=== PATIENT | male | born 1950 | race Caucasian/White ===

== ENCOUNTER → 2020-03-11 | Outpatient (CLI) | payer MEDICARE, BC, SELFPAY ==
[2013-06-18 16:11] VITALS: BMI 29.7
--- NOTE | 2020-03-11 | LES_PTH ---
PATIENT: JENNIFER BENDER LOC: [facility] U#:[id number] AGE/SX: 69/M ROOM: RE03/11/[address]: Dr. Marcellus Flower MD : 1950 BED: DIS: 03/11/2020 SPEC #: [id number] RECD: 03/12/20 12:10 STATUS: SURY PRINCE #: [id number] LOPEZ: 03/11/20 00:[address]: Marcellus Flower DEPT: SURGICAL PATHOLOGY RECD BY: Richelle Schwab Tissues: Skin of eyelid, NOS Procedures: Surgery Specimen Level IV HEADER OPERATION: Lesion removal right lower eyelid PRE-OP DIAGNOSIS: Lesion, right lower eye laterally, <0.5 cm with enlargement and restricted vision TISSUE SUBMITTED: Lesion, right lower eye MICROSCOPIC DIAGNOSIS Lesion right lower eyelid, biopsy: Inflamed verrucous keratosis. Negative for malignancy. SJ:rajeev 03/13/20 COMMENT Case has been reviewed in consultation with Dr. Amor who concurs with the above diagnosis. IDC:AM MICROSCOPIC DESCRIPTION Slides are reviewed. GROSS DESCRIPTION Received in fixative is one container labeled with the patient's name and designated right lower eyelid. The specimen consists of a piece of spencer-white skin measuring 0.6 x 0.2 x 0.2 cm. The entire specimen is submitted in one cassette. / SJ:rajeev 03/12/20 TC:5 CPT: 46239
== END | disposition home or self-care (01) ==
LOC: LABSPEC 03-12 12:39
PROVIDERS: Referring Provider Ophthalmology; Visit Provider Ophthalmology
DX: L57.0 Actinic keratosis (principal)
CPT/HCPCS: 88305

== ENCOUNTER → 2021-02-16 06:44 | Outpatient (CLI) | payer MEDICARE, BC, SELFPAY ==
--- NOTE | 2021-02-16 18:11 | STRESSREP_ITS ---
Stress Test Report Pharmacologic myocardial perfusion stress test. 70-year-old man with a history of chest pain. Stress protocol: Resting EKG demonstrates normal sinus rhythm with a rate of 73 bpm no acute changes are noted resting blood pressure is 142/84 mmHg. 0.4 mg of regadenoson was infused per usual protocol followed by rapid intravenous saline flush i njection continuous EKG monitoring was performed the maximum heart rate attained was 99 bpm which was 66% of maximum predicted heart rate the maximum workload was 1 metabolic equivalent. At rest with nonspecific ST changes noted at peak infusion nonspecific ST changes were noted. The final blood pressure is 152/78 mmHg. Myocardial perfusion protocol. 14.4 mCi of technetium 99m sestamibi was injected at rest. 0.4 mg of regadenoson was infused per usual protocol peak infusion 44.1 mCi of technetium 99m sestamibi was injected stress images were obtained stress and rest images were reconstructed and compared in the short axis vertical long horizontal long axis. Perfusion SPECT analysis: Review of the stress images demonstrate reduction of perfusion noted in the inferior wall. The anterior wall lateral wall and septum appear to be well perfused. The resting images demonstrate mild improvement in the inferior wall and inferior ischemia cannot be completely excluded though there is some GI attenuation artifact also present. Gated SPECT analysis: Gated images were not obtained. Conclusion: Pharmacologic myocardial perfusion stress test with probable inferior ischemia present.
== END ==
PROVIDERS: PCP Family Medicine; Referring Provider Family Medicine; Visit Provider Family Medicine
DX: R06.02 Shortness of breath (principal)
CPT/HCPCS: 78452; 93017; A9500; A4216; J2785

== ENCOUNTER → 2021-02-27 07:36 | Outpatient (CLI) | payer MEDICARE, BC, SELFPAY ==
[2021-02-24 09:36] VITALS: BMI 31.4
--- NOTE | 2021-02-27 07:38 | ECHOD_ITS ---
Reason For Study: CAD, SOB Procedure This was a 2D Doppler, Color Flow transthoracic echocardiogram. Exam performed in department. Left Ventricle Normal LV size. Mild concentric left ventricular hypertrophy. Left ventricular systolic function is normal. The estimated ejection fraction is 55 %. Stage 1 diastolic dysfunction. No regional wall motion abnormalities noted. Right Ventricle Normal RV size. Normal systolic function. Atria Normal left atrium. Normal right atrium. Mitral Valve Normal mitral valve. Trivial eccentric mitral valve insufficiency. Tricuspid Valve Normal tricuspid valve. Mild (1+) tricuspid valve insufficiency. Pulmonary artery systolic pressure is 29 mmHg. Aortic Valve Trivial aortic valve insufficiency. Great Vessels Normal aortic root. The pulmonary artery is normal size. Normal inferior vena cava. Pericardium/Pleural No pericardial effusion. MMode/2D Measurements & Calculations LVIDd: 4.2 cm IVSd: 1.3 cm Ao root diam: 3.9 cm LVIDs: 2.9 cm LVPWd: 1.2 cm RVDd: 3.6 cm FS: 29.8 % LAV(MOD-bp): 49.5 ml LVAd ap4: 33.2 cm2 LVAd ap2: 33.9 cm2 LAV(MOD-bp) Indexed: 22.8 ml/m2 LVLd ap4: 8.7 cm LVLd ap2: 9.1 cm LAV(MOD-sp2): 58.1 ml EDV(MOD-sp4): 102.5 ml EDV(MOD-sp2): 102.3 ml LAV(MOD-sp4): 40.0 ml EDV(sp4-el): 107.7 ml EDV(sp2-el): 106.8 ml LVAs ap4: 20.1 cm2 LVAs ap2: 19.5 cm2 LVLs ap4: 7.2 cm LVLs ap2: 8.0 cm ESV(MOD-sp4): 46.3 ml ESV(MOD-sp2): 40.9 ml ESV(sp4-el): 47.2 ml ESV(sp2-el): 40.6 ml EF(MOD-sp4): 54.8 % EF(MOD-sp2): 60.0 % EF(sp4-el): 56.1 % SV(MOD-sp4): 56.2 ml SV(MOD-sp2): 61.4 ml SV(sp4-el): 60.4 ml LA dimension(2D): 3.3 cm LA A4 area: 15.1 cm2 RA A4 area: 15.7 cm2 Doppler Measurements & Calculations MV E max joaquin: 65.6 cm/sec Lat Peak E' Joaquin: 7.5 cm/sec Med Peak E' Joaquin: 5.9 cm/sec MV A max joaquin: 78.8 cm/sec E/E' lat: 8.7 E/E' med: 11.0 MV E/A: 0.83 Ao V2 max: 119.6 cm/sec LV V1 max: 93.6 cm/sec PA V2 max: 92.2 cm/sec Ao max P.7 mmHg LV V1 max P.5 mmHg TR max joaquin: 256.5 cm/sec TR max P.3 mmHg ECHO/Echo Complete Interpretation Summary Normal LV size. Mild concentric left ventricular hypertrophy. Left ventricular systolic function is normal. The estimated ejection fraction is 55 %. Stage 1 diastolic dysfunction. Pulmonary artery systolic pressure is 29 mmHg. Ordering Physician: Cheo Medrano Referring Physician: Miky Delgadillo Performed By: Diana Thompson RDCS
== END ==
PROVIDERS: PCP Family Medicine; Referring Provider Internal Medicine Cardiovascular Disease; Visit Provider Internal Medicine Cardiovascular Disease
DX: I25.10 Atherosclerotic heart disease of native coronary artery without angina pectoris (principal); R06.02 Shortness of breath
CPT/HCPCS: 93306

== ENCOUNTER 2021-03-02 08:21 | Day surgery (SDC) | payer MEDICARE, BC, SELFPAY ==
[2021-02-24 09:36] VITALS: BMI 31.4
[2021-02-24 15:45] LABS: Absolute Lymphocyte Count 2.15 X10^3/uL (0.83-4.51); Absolute Neutrophil Count 4.8 X10^3/uL (2.0-7.7); Basophil# 0.09 X10^3/uL; Basophil% 1.1 % (0-1); Eosinophil# 0.26 X10^3/uL; Eosinophils% 3.2 % (0-5); Hemoglobin 15.1 g/dL (13.0-16.5); Lymphocyte # 2.15 X10^3/ul (0.83-4.51); Lymphocyte % 26.1 % (19-41); Mean Corp Hgb Conc 32.1 g/dL (32-36); Mean Corpuscular Hgb 29.9 pg (27.0-32.0); Mean Corpuscular Volume 93.1 fL (80-94); Monocyte% 10.9 % (0-10); NRBC Flagged by Analyzer 0 % (0-5); Neutrophil % 58.2 % (47-70); Platelet Count 211 K/mm3 (150-450); RBC Distribution Width CV 13.6 % (11.6-14.6); RBC Distribution Width SD 46.4 fl (35.1-43.9); Red Blood Count 5.05 M/mm3 (4.6-6.2); White Blood Count 8.2 K/mm3 (4.4-11.0)
[2021-02-24 16:29] LABS: Anion Gap 8 (5-15); BUN 25 mg/dL (7-18); BUN/Creat Ratio 11.6 RATIO (10-20); Calcium,Total 9.4 mg/dL (8.5-10.1); Chloride 100 mmol/L (98-107); Creatinine, Serum 2.15 mg/dL (0.70-1.30); EST Glomerular Filtration Rate 32 mL/min (>60); Est Glom Filt Rate - Afr Amer 39 mL/min (>60); Glucose 410 mg/dL (74-106); Potassium 4.8 mmol/L (3.5-5.1); Sodium Level 135 mmol/L (136-145)
[2021-02-27 10:50] VITALS: BMI 31.4
[2021-03-02] VITALS (16 sets, daily range): BP systolic 134–178; BP diastolic 74–119; PULSE 58–80; RESP 16–18; TEMP 36.6–36.8; O2SAT 92–97; BMI 31.8
--- NOTE | 2021-03-02 11:16 | CL.D_ITS ---
Patient Name: JENNIFER BENDER Study Date: 03/02/2021 Performing: Cheo Medrano MD Ht: 70.07 inches 178 cm : 1950 Wt: 218.26 lbs 99 kg Age: 70 Gender: male BSA: 2.17 PROCEDURE(S) PERFORMED [id number] W OR WO PTCA, SINGLE CORONARY ARTERY CLINICAL PROFILE AND INDICATIONS Indications: Suspected CAD Heart Failure: None Stress/Imaging Date: 01/20/21ress Test with SPECT MPI: Positive Intermediate Risk CAD Presentations: Unstable angina. CONCLUSIONS Moderately severe mid left circumflex artery stenosis with mild disease noted in the LAD and in the r ight coronary artery. RECOMMENDATIONS Referred for immediate PCI DESCRIPTION OF PROCEDURE The patient arrived to the procedure lab. The risks and benefits of the procedure as well as a full d escription of our services here and current unavailability of surgical backup were fully explained to the patient and/or their significant other prior to the catheterization. The Timeout was completed, verifying the correct patient and procedure. The patient's procedural site was prepped and draped in the usual fashion. Local anesthetic was given subcutaneously to right radial region with Lidocaine 2% . Using a modified Seldinger technique, arterial access was obtained via the right radial artery, a 6 Fr sheath was inserted. Left Coronary Artery selective angiography was performed in multiple views u sing a 5 Fr. 4.0 [place] catheter. Right Coronary Artery selective angiography was then performed in mu ltiple views using a 5 Fr. 4.0 [place] catheter.The arterial sheath was pulled and a TR Band was applie d for hemostasis. 14cc of air CORONARY ANGIOGRAPHY DOMINANCE: Right Dominant LEFT HEART ASSESSMENT Left Ventricular Ejection Fraction: by LV Gram 55 % Normal LV wall motion Normal Left Ventricular systolic function LEFT MAIN: Mild calcification, No significant disease noted LEFT ANTERIOR DESCENDING ARTERY: Moderate luminal irregularities up to 50% CIRCUMFLEX ARTERY: MID CIRC: 75 % Stenosis RIGHT CORONARY ARTERY: Mild luminal irregularities less than 30% COMPLICATIONS No Complications PROCEDURE MEDICATIONS Fentanyl 50 mcg IV Versed 1 mg IV Brilinta 180 mg PO @ 03/02/2021 11:10:42 Heparin given IA 03/02/2021 10:42:31 Heparin 5000 unit(s) IV 03/02/2021 10:58:19 Verapamil 2.5mg, Ntg 100mcgs, 3000 units of Heparin given IA 03/02/2021 10:42:31 IV Fluids: .9 NaCl IV started @ 100 ml/hr 03/02/2021 08:43:40 SUMMARY OF HEMODYNAMIC DATA Time AIR REST ECG 08:47:55 AO 85/53 (68) SA 10:45:01 AO 129/60 (86) 11:01:32 Signed By Cheo Medrano MD On 03/02/2021 11:16:14 AM Cheo Medrano MD
--- NOTE | 2021-03-02 11:30 | EKG12_ITS ---
Test Reason : POST PCI Blood Pressure : / mmHG Vent. Rate : 069 BPM Atrial Rate : 069 BPM P-R Int : 176 ms QRS Dur : 092 ms QT Int : 420 ms P-R-T Axes : 055 -46 033 degrees QTc Int : 450 ms Normal sinus rhythm Left anterior fascicular block Abnormal ECG Confirmed by MARGAUX CROCKETT, JONATHAN ([id number]), carbon paper coating machine setter BRENT CORTES ([id number]) on 03/04/2021 11:54:39 AM Referred By: Cheo Medrano Confirmed By:JONATHAN DAMICO MD
--- NOTE | 2021-03-02 11:42 | CL.I_ITS ---
Patient Name: JENNIFER BENDER Study Date: 03/02/2021 Performing: Dudley Rayo MD Ht: 70 inches 178 cm : 1950 Wt: 218.5 lbs 99 kg Age: 70 Gender: male BSA: 2.17 PROCEDURE(S) PERFORMED IF69-MIN W OR WO PTCA, SINGLE CORONARY ARTERY CLINICAL PROFILE AND CO-MORBIDITIES Indications: Suspected CAD Heart Failure: None Stress/Imaging Date: 01/20/21 Stress Test with SPECT MPI: Positive Intermediate Risk CAD Presentations: Unstable angina. CONCLUSIONS Successful JAVI to mLCx RECOMMENDATIONS DESCRIPTION OF PROCEDURE The patient arrived to the procedure lab. The risks and benefits of the procedure as well as a full d escription of our services here and current unavailability of surgical backup were fully explained to the patient and/or their significant other prior to the catheterization. The Timeout was completed, verifying the correct patient and procedure. The patient's procedural site was prepped and draped in the usual fashion. Local anesthetic was given subcutaneously to right radial region with Lidocaine 2% Using a modified Seldinger technique,arterial access was obtained via the right radial artery, a 6Fr sheath was inserted. Left Coronary Artery selective angiography was performed in multiple views usin g a 5 Fr. 4.0 Alden catheter. Right Coronary Artery selective angiography was then performed in multi ple views using a 5 Fr. 4.0 Alden catheter.The images were reviewed and options discussed. A decision was then made to proceed with an Intervention, IVUS or other adjunct procedure. XB3 Guide catheter was inserted and engaged into the LCA. BMW Guide wire was advanced to the Circ umflex. 3x15 Emerge Balloon catheter was inserted. Angiogram performed pre balloon dilatation. Balloo n catheter was advanced across lesion in the circumflex, mid. PTCA balloon inflated at 8 atms for 10 secs. 4x26 Orsiro Drug Eluting stent was inserted. Drug Eluting stent was advanced across the lesion in the circumflex, mid. Angiogram performed post stent deployment. The arterial sheath was pulled a nd a TR Band was applied for hemostasis. 14cc of air INTERVENTION INFORMATION LESION SITE: Circumflex (Mid) Lesion Complexity: High/C, chronic total occlusion: No, lesion at bifurcation: No, thrombus present: No, lesion length: 22 mm, culprit lesion: Yes, Previously treated lesion: No Pre Stenosis: 80 % Pre intervention YOLANDA flow: 3 PROCEDURE: Drug Eluting Stent with pre dilatation. Post Stenosis: 0 % Post intervention YOLANDA flow: 3 Lesion Devices: Rajput .014 BMW [place] Straight 190cm Cardinal 6 Fr XB3.0 100cm Guide Catheter Andi Sci EMERGE MR 3.00x15 BALLOON Biotronik Orsiro MR JAVI 4.0x26 COMPLICATIONS No Complications PROCEDURE MEDICATIONS Fentanyl 50 mcg IV Versed 1 mg IV Brilinta 180 mg PO @ 03/02/2021 11:10:42 Heparin given IA 03/02/2021 10:42:31 Heparin 5000 unit(s) IV 03/02/2021 10:58:19 Verapamil 2.5mg, Ntg 100mcgs, 3000 units of Heparin given IA 03/02/2021 10:42:31 IV Fluids: .9 NaCl IV started @ 100 ml/hr 03/02/2021 08:43:40 SUMMARY OF HEMODYNAMIC DATA Time AIR REST ECG 08:47:55 AO 85/53 (68) SA 10:45:01 AO 129/60 (86) 11:01:32 Signed By Dudley Rayo MD On 03/02/2021 11:41:32 Dudley Rayo MD
[2021-03-02] MEDS: 0.9% Normal Saline 1,000 ML 100 ML IV (12:11)
[2021-03-02 12:26] LABS: Bedside Glucose 197 mg/dL (70-110)
[2021-03-02 13:02] LABS: Hematocrit 44.2 % (40-54); Hemoglobin 14.8 g/dL (13.0-16.5); Mean Corp Hgb Conc 33.5 g/dL (32-36); Mean Corpuscular Hgb 29.9 pg (27.0-32.0); Mean Corpuscular Volume 89.3 fL (80-94); Mean Platelet Vol. 11.6 fl (6.2-12.0); Platelet Count 200 K/mm3 (150-450); RBC Distribution Width CV 13.7 % (11.6-14.6); RBC Distribution Width SD 44.8 fl (35.1-43.9); Red Blood Count 4.95 M/mm3 (4.6-6.2); White Blood Count 8.9 K/mm3 (4.4-11.0)
--- NOTE | 2021-03-02 14:09 | CRPHASE1_ITS ---
Patient Communication PHII Cardiac Rehab Discussed with Patient:: Yes Guide to Cardiac Rehab Given to Patient:: Yes Cardiac Rehab Facility Choice List Given to Patient:: Yes - Pt chooses [facility] Choice Program [facility] CR PHII:: Communication Given to CR, Refer to [facility] Animal Laboratory Technician:: Noelle Rayo Refer Phase II Cardiac Rehab:: Yes Sessions:: 36 sessions - 3 days/wk, 12 weeks Cardiac Rehabilitation Info Cardiac Rehabilitation Program Information: Cardiac Rehabilitation is important for patients like you who are recovering from a heart problem. Cardiac rehabilitation programs are recognized as integral to the continued care of the patient with coronary heart disease. The cardiac rehabilitation program is designed to optimize a patient's physical, psychological, and social functioning. Health career center director work in cardiac rehabilitation programs and assist you with getting the treatments you need to get stronger and healthier - like exercise, healthy eating habits, and medications. Cardiac rehabilitation has been show to help people with heart problems live longer and have better life enjoyment than people who do not go to cardiac rehabilitation. Please contact the Cardiac Rehabilitation Program at [facility] at in two weeks if you have not heard from them.
--- NOTE | 2021-03-02 14:11 | CRPH1.INSTRU ---
General Education CAD and cardiac anatomy and function:: Patient communicates acknowledgment Explanation of diagnoses and procedures:: Patient communicates acknowledgment Sign/Symptoms of AL:: Patient communicates acknowledgment Antiplatelet therapy: Patient communicates acknowledgment Proper use of NTG-SL: Not instructed Emergency procedures and activation of EMS: Patient communicates acknowledgment Compliance of all prescribed medications: Patient communicates acknowledgment Overweight/Obesity Overweight/Obesity:: Patient communicates acknowledgment Hypertension Hypertension:: Patient communicates acknowledgment Heart Disease Heart Disease Response Code:: Patient communicates acknowledgment Diabetes Diabetes:: Patient communicates acknowledgment Metabolic Syndrome Metabolic Syndrome Response Code:: Patient communicates acknowledgment Sedentary Sedentary Response Code:: Patient communicates acknowledgment Stress Stress Response Code:: Patient communicates acknowledgment
[2021-03-02] MEDS: amLODIPine 5 MG Tablet PO ×2 (15:14→16:33)
[2021-03-02 16:46] LABS: Bedside Glucose 206 mg/dL (70-110)
[2021-03-02] MEDS: Insulin Lispro 100 UNIT/ML INSULN.PEN 20 UNIT SC (17:01)
[2021-03-02] MEDS: Insulin Lispro 100 UNIT/ML INSULN.PEN SC (17:02)
[2021-03-02] MEDS: Budesonide Respules 0.5 MG/2 ML AMPUL.NEB. INHALATION (19:07)
[2021-03-02] MEDS: Albuterol 2.5 MG/3 ML VIAL.NEB. INHALATION (19:07)
[2021-03-02] MEDS: 0.9% Normal Saline 1,000 ML 75 ML IV (21:44)
[2021-03-02] MEDS: TICAGRELOR 90 MG TABLET PO (21:45)
[2021-03-02] MEDS: Atorvastatin Calcium 40 MG Tablet PO (21:45)
--- NOTE | 2021-03-02 21:47 | NURSING ---
Blood glucose 64, pt. denies hypoglycemic s/sx, accepts PB & J sandwich and OJ x 2.
[2021-03-02 22:35] LABS: Bedside Glucose 64 mg/dL (70-110)
[2021-03-03 02:21] LABS: Bedside Glucose 139 mg/dL (70-110)
[2021-03-03 03:00] VITALS: PULSE 63
[2021-03-03 03:32] VITALS: BP 121/64; PULSE 66; RESP 18; TEMP 36.8; O2SAT 95
[2021-03-03 05:32] LABS: Hemoglobin 13.4 g/dL (13.0-16.5); Mean Corp Hgb Conc 32.7 g/dL (32-36); Mean Corpuscular Hgb 29.7 pg (27.0-32.0); Mean Corpuscular Volume 90.9 fL (80-94); Mean Platelet Vol. 11.7 fl (6.2-12.0); Platelet Count 187 K/mm3 (150-450); RBC Distribution Width CV 13.9 % (11.6-14.6); RBC Distribution Width SD 46.4 fl (35.1-43.9); Red Blood Count 4.51 M/mm3 (4.6-6.2); White Blood Count 7.5 K/mm3 (4.4-11.0)
[2021-03-03 05:50] LABS: ALB/GLOB Ratio 1.2 RATIO (0.9-2.4); AST(SGOT) 24 U/L (15-37); Alanine Aminotransfer ALT/SGPT 27 U/L (16-61); Albumin, Serum 3.4 g/dL (3.2-5.0); Alkaline Phosphatase 115 U/L (45-117); Anion Gap 5 (5-15); BUN 22 mg/dL (7-18); Calcium,Total 8.6 mg/dL (8.5-10.1); Chloride 108 mmol/L (98-107); Creatinine, Serum 1.57 mg/dL (0.70-1.30); EST Glomerular Filtration Rate 46 mL/min (>60); Est Glom Filt Rate - Afr Amer 56 mL/min (>60); Estimated Creatinine Clearance 43.91 ml/min; Globulin 2.9 g/dL (2.2-4.2); Glucose 114 mg/dL (74-106); Protein, Total 6.3 g/dL (6.4-8.2); Sodium Level 138 mmol/L (136-145)
[2021-03-03 07:04] VITALS: PULSE 67
[2021-03-03] MEDS: Albuterol 2.5 MG/3 ML VIAL.NEB. INHALATION (07:15)
[2021-03-03] MEDS: Budesonide Respules 0.5 MG/2 ML AMPUL.NEB. INHALATION (07:15)
[2021-03-03 07:42] VITALS: O2SAT 94
[2021-03-03 07:43] VITALS: PULSE 82; RESP 19
[2021-03-03 07:51] LABS: Bedside Glucose 121 mg/dL (70-110)
--- NOTE | 2021-03-03 08:37 | PN.CARD_ITS ---
Subjective Subjective Patient seen and evaluated. Appears to be much better this morning. Objective Data Vital Signs: Vital Signs Temp Pulse Resp BP Pulse Ox 98.2 F 82 19 H 121/64 H 94 03/03/21 03:32 03/03/21 07:43 03/03/21 07:43 03/03/21 03:32 03/03/21 07:42 Oxygen Delivery Method Room Air Weight: 222 lb Body Mass Index (BMI) 31.8 Intake & Output: Intake and Output for Last 24 Hours 03/01/21 03/02/21 03/03/21 23:59 23:59 23:59 Intake Total 1210.63 / 1510.63 420 / 420 Balance 1210.63 / 1510.63 420 / 420 Lab / Micro Data Result Diagrams: 03/03/21 05:24 03/03/21 05:24 Labs: Laboratory Results - last 24 hr 03/02/21 12:18: POC Glucose 197 H 03/02/21 12:53: WBC 8.9, RBC 4.95, Hgb 14.8, Hct 44.2, MCV 89.3, MCH 29.9, MCHC 33.5, RDW Std Deviation 44.8 H, RDW Coeff of Marlin 13.7, Plt Count 200, MPV 11.6 03/02/21 16:37: POC Glucose 206 H 03/02/21 21:30: POC Glucose 64 L 03/03/21 02:11: POC Glucose 139 H 03/03/21 05:24: WBC 7.5, RBC 4.51 L, Hgb 13.4, Hct 41.0, MCV 90.9, MCH 29.7, MCHC 32.7, RDW Std Deviation 46.4 H, RDW Coeff of Marlin 13.9, Plt Count 187, MPV 11.7 03/03/21 05:24: Sodium 138, Potassium 4.0, Chloride 108 H, Carbon Dioxide 25.0, Anion Gap 5, BUN 22 H, Creatinine 1.57 H, Estim Creat Clear Calc 43.91, Est GFR (MDRD) Af Amer 56 L, Est GFR (MDRD) Non-Af 46 L, BUN/Creatinine Ratio 14.0, Glucose 114 H, Calcium 8.6, Total Bilirubin 0.80, AST 24, ALT 27, Alkaline Phosphatase 115, Total Protein 6.3 L, Albumin 3.4, Globulin 2.9, Albumin/Globulin Ratio 1.2 03/03/21 07:46: POC Glucose 121 H Cardiology Labs/Tests 03/02/21 12:53: WBC 8.9, RBC 4.95, Hgb 14.8, Hct 44.2, MCV 89.3, MCH 29.9, MCHC 33.5, Plt Count 200, MPV 11.6 03/03/21 05:24: WBC 7.5, RBC 4.51 L, Hgb 13.4, Hct 41.0, MCV 90.9, MCH 29.7, MCHC 32.7, Plt Count 187, MPV 11.7 03/03/21 05:24: Sodium 138, Potassium 4.0, Chloride 108 H, Carbon Dioxide 25.0, Anion Gap 5, BUN 22 H, Creatinine 1.57 H, Est GFR (MDRD) Af Amer 56 L, Est GFR ( MDRD) Non-Af 46 L, BUN/Creatinine Ratio 14.0, Glucose 114 H, Calcium 8.6, Total Bilirubin 0.80 Rhythm: EKG: ECHO: Stress Test: Cardiac Cath: PCI: CT Surgery: Holter monitor: EPS: PPM: CXR: Chest CT Scan: Physical Exam Const oriented x3 and healthy appearing Orientation / Consciousness: awake HEENT normocephalic Eyes PERRL and conjunctivae normal Neck supple, no JVD and no carotid bruits Chest inspection of chest normal Resp normal respiratory effort and clear to auscultation bilaterally Cardio Palpation: normal PMI Rate: regular rate Rhythm: regular rhythm Heart Sounds: S1 normal and S2 normal Peripheral Pulses: pulses 2+ throughout GI normal to inspection, nondistended, normoactive bowel sounds Extremity normal to inspection and no clubbing, cyanosis or edema Psych mental status grossly normal Assessment & Plan Assessment/Plan (1) History of coronary artery stent placement: PLAN: Patient is status post angioplasty and stenting of the left circumflex artery. He is doing well this morning. His renal function has actually improved with the hydration. I would recommend we discontinue the losartan temporarily and see how he does. (2) Essential hypertension: PLAN: Would recommend starting amlodipine 10 mg a day and discontinuing the losartan. Thank you for allowing me to participate in the care of your patient. Please don't hesitate to call if any issues arise.
--- NOTE | 2021-03-03 08:44 | PCM.DC ---
Discharge Instructions Diet Discharge Diet: Low fat / Low cholesterol Activity Discharge Activity: Return to Normal Activity Dressing / Incision Additional Dressing/Incision Instructions:: Drink lots of fluids. Follow Up Care When: Chemistry profile in 1 week. The office will send a request for you. Test Results: Test results from this visit will be discussed in further detail at your follow-up appointment, if applicable. Discharge Plan Admission Attending Provider: Cheo Medrano Primary Care Provider: Miky Delgadillo Discharge Orders/Prescriptions Prescriptions: New Brilinta 90 mg Tablet 90 mg PO BID Qty: 60 RF: 3 amlodipine 10 mg Tablet 10 mg PO DAILY Qty: 90 RF: 3 Continued insulin lispro 100 unit/mL insulin pen See Rx Instructions subcut QAC RF: 0 insulin glargine 100 unit/mL (3 mL) insulin pen See Rx Instructions subcut BID RF: 0 aspirin [Adult Low Dose Aspirin] 81 mg tablet,delayed release (DR/EC) 81 mg PO DAILY RF: 0 atorvastatin 40 mg tablet 40 mg PO QHS RF: 0 acetaminophen 500 mg Tablet 500 mg PO DAILY RF: 0 Breo Ellipta 200-25 mcg/dose Blister With Device 1 inh INHALATION DAILY RF: 0 Discontinued losartan 25 mg tablet 25 mg PO DAILY RF: 0 Referrals / Follow Up: Miky Delgadillo MD [Primary Care Provider] - Disposition Discharge Orders: Discharge Patient (Routine); Ordered 03/03/21 Ordered By: Dr. Cheo Medrano
[2021-03-03 09:00] VITALS: BP 136/66; PULSE 87; RESP 14; TEMP 36.6; O2SAT 95
[2021-03-03] MEDS: Insulin Lispro 100 UNIT/ML INSULN.PEN 10 UNIT SC (09:04)
[2021-03-03] MEDS: Acetaminophen 500 MG Tablet PO (09:04)
[2021-03-03] MEDS: TICAGRELOR 90 MG TABLET PO (09:05)
[2021-03-03] MEDS: Aspirin E.C. 81 MG Tablet PO (09:05)
[2021-03-03] MEDS: amLODIPine 10 MG Tablet PO (09:15)
--- NOTE | 2021-03-03 09:56 | CASEMGMT ---
Pt to be sent home on Brilinta and med e-scribed to [facility]. Call to pharmacist at [facility] and pt's co-pay is $110.50. Pt updated and provided a month free trial card. Pt aware to discuss with Dr. Medrano if any concerns with cost after 1st month, voices understanding. Pt voices no further questions/concerns/needs. Phillip DUARTE CM
--- NOTE | 2021-03-03 10:00 | EKG12_ITS ---
Test Reason : AM EKG Blood Pressure : / mmHG Vent. Rate : 073 BPM Atrial Rate : 073 BPM P-R Int : 180 ms QRS Dur : 092 ms QT Int : 426 ms P-R-T Axes : 053 -40 028 degrees QTc Int : 469 ms Normal sinus rhythm Left axis deviation Abnormal ECG Confirmed by MARGAUX CROCKETT, JONATHAN ([id number]), photo editor BRENT CORTES ([id number]) on 03/04/2021 11:53:38 AM Referred By: Cheo Medrano Confirmed By:JONATHAN DAMICO MD
--- NOTE | 2021-03-03 10:09 | PHA.DC.MC ---
Pharmacy Service has performed discharge medication reconciliation and counseling for this patient. 1. AMLODIPINE 10MG PO DAILY 2. TICAGRELOR 90MG PO BID The patient's discharge medication list was reviewed for discrepancies and discrepancies were resolved. Home Medications aspirin 81 mg tablet,delayed release 81 mg PO DAILY 02/20/21 atorvastatin 40 mg tablet 40 mg PO QHS 02/20/21 insulin glargine 100 unit/mL (3 mL) subcutaneous pen See Rx Instructions SUBCUT BID 02/20/21 insulin lispro 100 unit/mL subcutaneous pen See Rx Instructions SUBCUT QAC ml 02/20/21 Breo Ellipta 1 inh INHALATION DAILY 03/02/21 acetaminophen 500 mg PO DAILY 03/02/21 amlodipine 10 mg PO DAILY #90 tab 03/03/21 ticagrelor [Brilinta] 90 mg PO BID #60 tab 03/03/21 The patient was counseled on the following discharge medications and changes in medications for homegoing were reviewed. The Reason for Use, instructions for use, and potential side effects were reviewed for all new medications. The patient's questions regarding all of their medications were answered. The patient was able to verbally demonstrate an understanding of their discharge medications.
== END 2021-03-03 11:00 ==
LOC: CLSP 08:22 → PCU 15:34
PROVIDERS: Specialist; PCP Family Medicine; Referring Provider Internal Medicine Cardiovascular Disease; Visit Provider Internal Medicine Cardiovascular Disease
DX: I25.110 Atherosclerotic heart disease of native coronary artery with unstable angina pectoris (principal); R06.02 Shortness of breath; R94.39 Abnormal result of other cardiovascular function study; E78.5 Hyperlipidemia, unspecified; I12.9 Hypertensive chronic kidney disease with stage 1 through stage 4 chronic kidney disease, or unspecified chronic kidney disease; E10.22 Type 1 diabetes mellitus with diabetic chronic kidney disease; N18.30 Chronic kidney disease, stage 3 unspecified; Z79.4 Long term (current) use of insulin; Z79.899 Other long term (current) drug therapy; Z87.891 Personal history of nicotine dependence
CPT/HCPCS: 36415; 80048; 80053; 82962; 85025; 85027; 92928; 93005; 93454; 94640; 99152; 99153; C1874; J7030; J7040; Q9967; C1725; C1769; C1887; C1894; C9600; J1327

== ENCOUNTER → 2021-03-09 08:27 | Outpatient (CLI) | payer MEDICARE, BC, SELFPAY ==
[2021-03-02 12:23] VITALS: BMI 31.8
[2021-03-09 11:20] LABS: Anion Gap 7 (5-15); BUN 21 mg/dL (7-18); BUN/Creat Ratio 11.7 RATIO (10-20); Calcium,Total 9.3 mg/dL (8.5-10.1); Chloride 103 mmol/L (98-107); Creatinine, Serum 1.79 mg/dL (0.70-1.30); EST Glomerular Filtration Rate 40 mL/min (>60); Est Glom Filt Rate - Afr Amer 48 mL/min (>60); Glucose 224 mg/dL (74-106); Potassium 4.3 mmol/L (3.5-5.1); Sodium Level 137 mmol/L (136-145)
== END ==
PROVIDERS: PCP Family Medicine; Referring Provider Internal Medicine Cardiovascular Disease; Visit Provider Internal Medicine Cardiovascular Disease
DX: C64.9 Malignant neoplasm of unspecified kidney, except renal pelvis (principal); E78.5 Hyperlipidemia, unspecified; I25.10 Atherosclerotic heart disease of native coronary artery without angina pectoris; I12.9 Hypertensive chronic kidney disease with stage 1 through stage 4 chronic kidney disease, or unspecified chronic kidney disease; N18.30 Chronic kidney disease, stage 3 unspecified; R06.02 Shortness of breath; Z95.5 Presence of coronary angioplasty implant and graft
CPT/HCPCS: 36415; 80048

== ENCOUNTER 2021-05-04 09:26 | Emergency (ER) | payer MEDICARE, BC, SELFPAY ==
[2021-05-04 09:27] VITALS: BP 139/69; PULSE 100; RESP 18; TEMP 35.3; O2SAT 93; BMI 31.5
--- NOTE | 2021-05-04 09:32 | EDS_ITS ---
HPI History of Present Illness Chief Complaint: Abd Pain Informant: patient Narrative Narrative: 70-year-old male presenting with left lower quadrant abdominal pain. He states this has been ongoing for approximately 2 weeks. He states he initially felt like it was a pulled muscle. He states the pain has continued. He denies nausea or vomiting. Denies diarrhea or constipation. Denies urinary complaints. Denies fever. Denies chest pain. He states he has shortness of breath which is chronic and no worse than usual. History of renal cell carcinoma and nephrectomy. He is vaccinated for Covid. 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 History of type 1 diabetes mellitus Hyperlipidemia Lung nodule Renal cell carcinoma Home Medications aspirin 81 mg tablet,delayed release 81 mg PO DAILY 02/20/21 [History Last Taken 03/02/21 07:00] atorvastatin 40 mg tablet 40 mg PO QHS 02/20/21 [History Last Taken Unknown] insulin glargine 100 unit/mL (3 mL) subcutaneous pen See Rx Instructions SUBCUT BID 02/20/21 [History Last Taken Unknown] insulin lispro 100 unit/mL subcutaneous pen See Rx Instructions SUBCUT QAC ml 02/20/21 [History Last Taken Unknown] Breo Ellipta 1 inh INHALATION DAILY 03/02/21 [History Last Taken 03/01/21] acetaminophen 500 mg PO DAILY 03/02/21 [History Last Taken 03/02/21 07:00] amlodipine 10 mg PO DAILY #90 tab 03/03/21 [Rx Last Taken Unknown] clopidogrel 75 mg tablet 75 mg PO QDAY #93 tab 03/19/21 [Rx Last Taken Unknown] Allergy/AdvReac Type Severity Reaction Status Date / Time lisinopril AdvReac cough Verified 03/19/21 10:02 Family History Mother Hypertension Multiple myeloma Sister Hepatitis C Surgical History History of colonoscopy (08/09/11) History of coronary artery stent placement (03/02/21) History of hammer toe correction (1965) History of right nephrectomy (12/23/20) History of spinal surgery (01/2004) History of tonsillectomy (12/24/11) History of umbilical hernia repair Social History Smoking Status: Former smoker how long ago did patient quit smokin years ago alcohol intake: current alcohol intake frequency: a few times a month substance use type: does not use ROS ROS ED Constitutional Constitutional ED: Denies fever(s) Eyes Eyes: Denies change in vision ENT ENT ED: Denies rhinorrhea or sore throat Cardiovascular Cardiovascular: Denies chest pain or palpitations Respiratory/Chest Respiratory/Chest: Reports dyspnea; Denies cough Gastrointestinal Gastrointestinal: Reports abdominal pain; Denies constipation, diarrhea, melena, nausea or vomiting Genitourinary Genitourinary ED: Denies dysuria Musculoskeletal Musculoskeletal: Denies back pain or myalgias Integumentary Denies rash Neurologic Neurologic: Denies headache(s) Psychiatric Psychiatric: Denies suicidal thoughts EXAM Physical Exam Const Vital Signs: 05/04/21 09:27 05/04/21 11:58 05/04/21 13:18 Temperature 95.5 F L Temperature Source Temporal Pulse Rate 100 Respiratory Rate 18 Blood Pressure 139/69 H 154/84 H 165/88 H Blood Pressure Mean 92 107 113 Pulse Ox 93 93 Oxygen Delivery Method Room Air Room Air Positive well nourished and well developed General Appearance ED: well developed HEENT Reports normocephalic and head/scalp atraumatic Eyes PERRL and EOMs intact bilaterally Neck supple General: Negative for tenderness Chest Wall inspection of chest normal Resp normal respiratory effort and clear to auscultation bilaterally Cardio regular rate and regular rhythm GI non-distended Palpation: soft and tender LLQ; Negative for guarding or rebound tenderness present no CVA tenderness Back/Spine no CVA tenderness Extremity normal to inspection Neuro oriented x3 Sensorium / Orientation: alert Psych mental status grossly normal Skin no rashes or lesions noted MDM MDM MDM Narrative Medical decision making narrative: CBC, chemistries unremarkable other than creatinine 1.96 which is at his baseline. Glucose 325. Lipase is normal. Troponin is negative. D-dimer negative. Urinalysis unremarkable. CT abdomen pelvis was obtained and shows increased soft tissue density in the left psoas muscle adjacent to the distal left ureter with mild degree of dilatation of the distal left ureter. No abnormal calcification is seen at that site. Status post right nephrectomy. Small infrarenal abdominal aortic aneurysm. Patient is resting comfortably on reevaluation. Discussed with Dr. Blandon and he will see him in the office tomorrow as an outpatient. Patient and family are agreeable to this plan. Advised return to ED for worsening complaints. Lab Data Attestation: I reviewed the patient's lab results. Labs: Laboratory Results - last 24 hr 05/04/21 05/04/21 05/04/21 10:05 10:20 10:20 WBC 6.8 RBC 4.94 Hgb 14.7 Hct 45.3 MCV 91.7 MCH 29.8 MCHC 32.5 RDW Std Deviation 46.5 H RDW Coeff of [place] 13.7 Plt Count 222 MPV 11.6 Immature Gran % (Auto) 0.300 Neut % (Auto) 63.7 Lymph % (Auto) 23.3 [place] % (Auto) 9.1 Eos % (Auto) 2.6 Baso % (Auto) 1.0 Absolute Neuts (auto) 4.4 Absolute Lymphs (auto) 1.59 Nucleated RBC % 0 D-Dimer Quant (PE/DVT) 0.41 Sodium Potassium Chloride Carbon Dioxide Anion Gap BUN Creatinine Estim Creat Clear Calc Est GFR (MDRD) Af Amer Est GFR (MDRD) Non-Af BUN/Creatinine Ratio Glucose Calcium Total Bilirubin AST ALT Alkaline Phosphatase Troponin I High Sens Total Protein Albumin Globulin Albumin/Globulin Ratio Lipase Urine Color Yellow Urine Clarity Sl. Cloudy Urine pH 5.0 Ur Specific [place] 1.020 Urine Protein 15 H Urine Glucose (UA) 1000 H Urine Ketones Negative Urine Occult Blood Negative Urine Nitrite Negative Urine Bilirubin Negative Urine Urobilinogen Normal Ur Leukocyte Esterase Negative Urine RBC 0 SEEN Urine WBC 0 SEEN Ur Squamous Epith Cells 0-5 SEEN Urine Bacteria RARE Urine Mucus 0 SEEN 05/04/21 10:20 WBC RBC Hgb Hct MCV MCH MCHC RDW Std Deviation RDW Coeff of [place] Plt Count MPV Immature Gran % (Auto) Neut % (Auto) Lymph % (Auto) [place] % (Auto) Eos % (Auto) Baso % (Auto) Absolute Neuts (auto) Absolute Lymphs (auto) Nucleated RBC % D-Dimer Quant (PE/DVT) Sodium 135 L Potassium 4.4 Chloride 103 Carbon Dioxide 23.0 Anion Gap 9 BUN 24 H Creatinine 1.96 H Estim Creat Clear Calc 35.18 Est GFR (MDRD) Af Amer 43 L Est GFR (MDRD) Non-Af 36 L BUN/Creatinine Ratio 12.2 Glucose 325 H Calcium 8.8 Total Bilirubin 1.20 H AST 11 L ALT 27 Alkaline Phosphatase 129 H Troponin I High Sens 12 Total Protein 7.3 Albumin 3.4 Globulin 3.9 Albumin/Globulin Ratio 0.9 Lipase 104 Urine Color Urine Clarity Urine pH Ur Specific [place] Urine Protein Urine Glucose (UA) Urine Ketones Urine Occult Blood Urine Nitrite Urine Bilirubin Urine Urobilinogen Ur Leukocyte Esterase Urine RBC Urine WBC Ur Squamous Epith Cells Urine Bacteria Urine Mucus Radiography Diagnostic Testing: Radiology Impression Abdomen CT 05/04/21 10:55 IMPRESSION: Increased soft tissue density in the left psoas muscle adjacent to the distal left ureter with mild degree of dilatation of the distal left ureter. No abnormal calcification is seen at that site. Status post right nephrectomy. Small infrarenal abdominal aortic aneurysm. Electronically Signed: Samm Mcintosh MD at 13:16 EDT , Service support , EKG Initial EKG: Attestation: I personally reviewed and interpreted this EKG as follows: Interpretation: Sinus Rhythm and No Acute Injury Pattern Discharge Plan Triage Chief Complaint: Abd Pain ED Provider: Hannah Lozoya Dx/Rx/DC Orders Clinical Impression: Acute left flank pain Instructions: ED Flank Pain, Uncertain Cause Prescriptions: No Action insulin lispro 100 unit/mL insulin pen See Rx Instructions subcut QAC RF: 0 insulin glargine 100 unit/mL (3 mL) insulin pen See Rx Instructions subcut BID RF: 0 aspirin [Adult Low Dose Aspirin] 81 mg tablet,delayed release (DR/EC) 81 mg PO DAILY RF: 0 atorvastatin 40 mg tablet 40 mg PO QHS RF: 0 clopidogrel [Plavix] 75 mg tablet 75 mg PO QDAY Qty: 93 RF: 3 acetaminophen 500 mg Tablet 500 mg PO DAILY RF: 0 Breo Ellipta 200-25 mcg/dose Blister With Device 1 inh INHALATION DAILY RF: 0 amlodipine 10 mg Tablet 10 mg PO DAILY Qty: 90 RF: 3 Primary Care Provider: Miky Delgadillo Referrals: Miky Delgadillo MD [Primary Care Provider] - Eleazar Blandon MD [STAFF PHYSICIAN] - Disposition Disposition: Home, Self Care
--- NOTE | 2021-05-04 09:40 | EKG12_ITS ---
Test Reason : ABD PAIN Blood Pressure : / mmHG Vent. Rate : 086 BPM Atrial Rate : 086 BPM P-R Int : 164 ms QRS Dur : 092 ms QT Int : 376 ms P-R-T Axes : 051 -68 040 degrees QTc Int : 449 ms Normal sinus rhythm Left anterior fascicular block Abnormal ECG Confirmed by MARGAUX CROCKETT, JONATHAN ([id number]), story editor BRENT CORTES ([id number]) on 05/08/2021 7:08:24 AM Referred By: YVAN Confirmed By:JONATHAN DAMICO MD
[2021-05-04 10:17] LABS: Mucous, Urine 0 SEEN /hpf (<or=2+); Red Blood Cells-Urine 0 SEEN /hpf (0-5); White Blood Cells 0 SEEN /hpf (0-5)
[2021-05-04 10:22] LABS: Color, Urine Yellow (Yellow); Glucose, Dipstick 1000 mg/dl (Normal); Ketone-Dipstick Negative (Negative); Leukocyte Esterase-Dipstick Negative /ul (Negative); Nitrite-Dipstick Negative (Negative); Occult Blood-Urine Negative /ul (Negative); Protein-Dipstick 15 mg/dl (Negative); Urine Bilirubin Dipstick Negative (Negative); Urine Clarity Sl. Cloudy (Clear); Urine Urobilinogen Normal (Normal)
[2021-05-04 10:27] LABS: Absolute Lymphocyte Count 1.59 X10^3/uL (0.83-4.51); Absolute Neutrophil Count 4.4 X10^3/uL (2.0-7.7); Basophil# 0.07 X10^3/uL; Eosinophil# 0.18 X10^3/uL; Eosinophils% 2.6 % (0-5); Hematocrit 45.3 % (40-54); Hemoglobin 14.7 g/dL (13.0-16.5); Lymphocyte # 1.59 X10^3/ul (0.83-4.51); Lymphocyte % 23.3 % (19-41); Mean Corp Hgb Conc 32.5 g/dL (32-36); Mean Corpuscular Hgb 29.8 pg (27.0-32.0); Mean Corpuscular Volume 91.7 fL (80-94); Mean Platelet Vol. 11.6 fl (6.2-12.0); Monocyte# 0.62 X10^3/uL; Monocyte% 9.1 % (0-10); NRBC Flagged by Analyzer 0 % (0-5); Neutrophil # 4.35 X10^3/uL (2.7-7.7); Neutrophil % 63.7 % (47-70); Platelet Count 222 K/mm3 (150-450); RBC Distribution Width CV 13.7 % (11.6-14.6); RBC Distribution Width SD 46.5 fl (35.1-43.9); Red Blood Count 4.94 M/mm3 (4.6-6.2); White Blood Count 6.8 K/mm3 (4.4-11.0)
[2021-05-04 10:28] LABS: Squamous Epithelial Cells - UA 0-5 SEEN /hpf (0-5)
[2021-05-04 10:29] LABS: Bacteria RARE /hpf (None Seen)
[2021-05-04 10:38] LABS: D-Dimer Quantitative (DVT/PE) 0.41 FEU/ug/m (0.27-0.49)
[2021-05-04 10:46] LABS: ALB/GLOB Ratio 0.9 RATIO (0.9-2.4); AST(SGOT) 11 U/L (15-37); Alanine Aminotransfer ALT/SGPT 27 U/L (16-61); Albumin, Serum 3.4 g/dL (3.2-5.0); Alkaline Phosphatase 129 U/L (45-117); Anion Gap 9 (5-15); BUN 24 mg/dL (7-18); BUN/Creat Ratio 12.2 RATIO (10-20); Calcium,Total 8.8 mg/dL (8.5-10.1); Chloride 103 mmol/L (98-107); Creatinine, Serum 1.96 mg/dL (0.70-1.30); EST Glomerular Filtration Rate 36 mL/min (>60); Est Glom Filt Rate - Afr Amer 43 mL/min (>60); Estimated Creatinine Clearance 35.18 ml/min; Globulin 3.9 g/dL (2.2-4.2); Glucose 325 mg/dL (74-106); Lipase 104 U/L (73-393); Potassium 4.4 mmol/L (3.5-5.1); Protein, Total 7.3 g/dL (6.4-8.2); Sodium Level 135 mmol/L (136-145); Troponin-I HS 12 pg/mL (3.0-78.0)
--- NOTE | 2021-05-04 10:55 | CT_ITS ---
STUDY: CT ABDOMEN AND PELVIS WITHOUT CONTRAST REASON FOR EXAM: Male, 70 years old. LLQ pain. History of chronic renal disease stage III. Prior right nephrectomy for renal cell carcinoma. Prior umbilical hernia repair. RADIATION DOSAGE (If Supplied By Facility): CTDIvol = ( 16.44 ) mGy, DLP = ( 792.72. ) mGycm TECHNIQUE: Transaxial images were obtained from the dome of the diaphragm to the symphysis pubis without oral contrast, and without intravenous contrast. Sagittal and coronal images were reconstructed. Individualized dose optimization techniques were used for this CT. COMPARISON: Comparison is made with prior study dated 06/19/2013. FINDINGS: Mild increased linear markings at the lung bases suggestive of scarring. Coronary artery calcification. There is decreased attenuation of the liver consistent with steatosis. Normal gallbladder and extrahepatic biliary system. Normal spleen. Normal pancreas. Normal bilateral adrenal glands. The patient is status post right nephrectomy. Normal left kidney. Normal visualized stomach. Normal small intestine. Normal colon. The appendix is visualized and appears normal. There is diffuse atherosclerotic calcification of the abdominal aorta and its major visceral branches. Mild dilatation of the distal abdominal aorta with a transverse dimension of 3.5. Normal inferior vena cava. Minimal increased markings are seen overlying the mid left psoas muscle with evidence of a soft tissue density surrounding the ureter at that level. No significant hydroureter or hydronephrosis is seen. Distended urinary bladder. Normal abdominal wall. There are diffuse degenerative changes of the visualized lumbar spine. CT/Abdomen/Pel W ORAL Cont Only IMPRESSION: Increased soft tissue density in the left psoas muscle adjacent to the distal left ureter with mild degree of dilatation of the distal left ureter. No abnormal calcification is seen at that site. Status post right nephrectomy. Small infrarenal abdominal aortic aneurysm. Electronically Signed: Samm Mcintosh MD at 13:16 EDT , Service support ,
[2021-05-04 11:58] VITALS: BP 154/84
[2021-05-04 13:18] VITALS: BP 165/88; O2SAT 93
[2021-05-04 14:46] VITALS: BP 157/81
== END 2021-05-04 14:47 | disposition home or self-care (01) ==
PROVIDERS: Emergency Provider Emergency Medicine; PCP Family Medicine
DX: R10.9 Unspecified abdominal pain (principal); I25.10 Atherosclerotic heart disease of native coronary artery without angina pectoris; I12.9 Hypertensive chronic kidney disease with stage 1 through stage 4 chronic kidney disease, or unspecified chronic kidney disease; E10.22 Type 1 diabetes mellitus with diabetic chronic kidney disease; N18.30 Chronic kidney disease, stage 3 unspecified; E78.5 Hyperlipidemia, unspecified; Z90.5 Acquired absence of kidney; Z85.528 Personal history of other malignant neoplasm of kidney; Z79.4 Long term (current) use of insulin; Z79.899 Other long term (current) drug therapy; Z87.891 Personal history of nicotine dependence
CPT/HCPCS: 74176; 80053; 81001; 83690; 84484; 85025; 85379; 93005; 96360; 96361; 99283; J7030